=== PATIENT | female | born 1950 | race Caucasian/White ===

== ENCOUNTER → 2016-12-08 | Outpatient (CLI) | payer OTHER ==
[~2016-12-08] MED LIST: ACETAMINOPHEN PO; ASPIRIN81 M1 PO; BENTYL20 M1 PO; COZAAR PO; LOMOTIL TABLET1 TAB PO; LOPRESSOR PO; MEVACOR PO; NITRO-DUR 0.1M0.1 MG SL; PLAVIX PO; PROTONIX PO; SIMVASTATIN80 MG PO; ZOFRAN ODT4 MG/UDTAB PO
--- NOTE | ~2016-12-08 | CT3 ---
[facility] A Service of [facility] & [facility] RADIOLOGY TEXT RESULTS PATIENT: OSCAR VALADEZ LOCATION: [facility]AT : 52 UNIT #: [id number] AGE: [address]: Sumanth Barraza MD SEX: F ORDER DR: [id number] [facility] [address] [place], [place] [address] [id number] O MR#: [id number] Acc #: [id number] NAME: OSCAR VALADEZ : 1950 SEX: F STUDY DATE/TIME: 12/08/2016 12:12 UNIT: [facility] ROOM: STUDY DESCRIPTION: CT Abd and Pelv WWo Cont Attending Physician: Sumanth Barraza M.D. Referring Physician: Sumanth Barraza M.D. Ordering Physician: Sumanth Barraza M.D. Primary Care Physician: Flora Rosario M.D. MEDICAL IMAGING REPORT This report is preliminary unless electronic signature is present EXAM CT abdomen and pelvis without and with contrast. INDICATIONS Cystitis with hematuria for the past 2 weeks. Urinary tract infection for the past [address] of the abdomen and pelvis. Postcontrast CT abdomen and pelvis with multiphase acquisition through the kidneys. This CT exam was performed with one or more of the following radiation dose reduction techniques: automatic exposure control, adjustment of mA and/or kV according to patient size, and iterative reconstruction. COMPARISON None FINDINGS ABDOMEN WITHOUT CONTRAST: Included lung bases are clear. No radiodense gallstones. There are 2 nonobstructing calculi in the lower pole left kidney, largest measuring 3 mm. No radiodense ureteral calculus or hydronephrosis. PELVIS WITHOUT CONTRAST: No radiodense bladder calculus. ABDOMEN WITH CONTRAST: Liver, spleen, adrenal glands, pancreas, gallbladder unremarkable. Bowel loops nondilated. Appendix is normal. Kidneys show symmetric enhancement. There are a few subcentimeter hypodensities in the kidneys, too small to characterize, but probably cysts. There is a 1.1-cm cyst versus angiomyolipoma in the left kidney. No enhancing renal mass. No ureteral filling defects. [facility] A Service of [facility] & [facility] RADIOLOGY TEXT RESULTS PATIENT: OSCAR VALADEZ LOCATION: [facility] : 51 UNIT #: [id number] AGE: [address]: Sumanth Barraza MD SEX: F ORDER DR: PELVIS WITH CONTRAST: No bladder mass. Bladder is decompressed. No appreciable bladder wall thickening. No pelvic fluid. No aggressive-appearing bone lesion. IMPRESSION 1. Bladder is decompressed, but there is no appreciable bladder wall thickening. 2. Likely small cysts in both kidneys. No enhancing renal mass. 3. No clearly acute finding in the abdomen or pelvis. Dictated by... Derek Vazquez M.D. THIS IS AN ELECTRONICALLY VERIFIED REPORT Derek Vazquez M.D. at 12/09/2016 7:09 AM Shukri TD: 12/08/2016 18:02 JOB #: [id number] MEDICAL IMAGING REPORT Page 1 of 1 COPY
[2016-12-08 13:35] LABS: POC - CREATININE 0.67 mg/dL (0.44-1.03); POC - GFR >60.0 mL/min (>60)
== END | disposition home or self-care (01) ==
LOC: CCAT 11:33
PROVIDERS: Urology
DX: N30.01 Acute cystitis with hematuria (principal); N32.89 Other specified disorders of bladder
CPT/HCPCS: 74178; 82565; Q9967